=== PATIENT | female | born 1995 | race Hispanic/Latino ===

== ENCOUNTER 2017-10-18 01:09 | Emergency (ER) | payer SELFPAY ==
[2017-10-18 02:30] LABS: APPEARANCE,URINE TURBID (CLEAR); BILIRUBIN,URINE Negative (NEGATIVE); COLOR,URINE RED (YELLOW); GLUCOSE, URINE (UA) Negative (NEGATIVE); KETONES,URINE Negative (NEGATIVE); LEUKOCYTE ESTERASE ,URINE Negative (NEGATIVE); NITRATE,URINE Negative (NEGATIVE); OCCULT BLOOD,URINE Large (NEGATIVE); PROTEIN,URINE POS 2+ (NEGATIVE)
[2017-10-18 02:31] LABS: BACTERIA,URINE None Seen /HPF (None Seen); RBC,URINE TNTC /HPF (0-1); SQUAMOUS EPITHELIAL CELL,UR Rare /HPF (0-2)
[2017-10-18 02:32] LABS: HCG,QUAL RESULT NEGATIVE (NEGATIVE)
[2017-10-18 02:38] LABS: AMPHET/METH SCREEN,URINE NEGATIVE (NEGATIVE); BARBITURATE SCREEN, URINE NEGATIVE (NEGATIVE); BENZODIAZEPINES SCREEN,URINE NEGATIVE (NEGATIVE); CANNABINOID SCREEN,URINE POSITIVE (NEGATIVE); COCAINE SCREEN,URINE NEGATIVE (NEGATIVE); OPIATE SCREEN,URINE NEGATIVE (NEGATIVE); PHENCYCLIDINE SCREEN,URINE NEGATIVE (NEGATIVE)
== END 2017-10-18 02:57 | disposition home or self-care (01) ==
LOC: EDH 01:09
DX: N93.8 Other specified abnormal uterine and vaginal bleeding (principal); G43.909 Migraine, unspecified, not intractable, without status migrainosus
CPT/HCPCS: 80305; 81001; 81025

== ENCOUNTER 2018-05-01 16:54 | Emergency (ER) | payer SELFPAY ==
[2018-05-01 17:24] LABS: APPEARANCE,URINE Cloudy (CLEAR); BILIRUBIN,URINE Negative (NEGATIVE); COLOR,URINE Yellow (YELLOW); GLUCOSE, URINE (UA) Negative (NEGATIVE); KETONES,URINE Negative (NEGATIVE); LEUKOCYTE ESTERASE ,URINE Negative (NEGATIVE); NITRATE,URINE Negative (NEGATIVE); OCCULT BLOOD,URINE Negative (NEGATIVE); PH,URINE 7.5 (5.0-8.0); PROTEIN,URINE Negative (NEGATIVE); UROBILINOGEN,URINE 0.2 mg/dL (0.2-1.0)
[2018-05-01 17:25] LABS: HCG,QUAL RESULT NEGATIVE (NEGATIVE)
[2018-05-01 17:43] LABS: BACTERIA,URINE Few /HPF (None Seen); RBC,URINE None Seen /HPF (0-1); SQUAMOUS EPITHELIAL CELL,UR 30-50 /HPF (0-2); WBC,URINE None Seen /HPF (0-1)
[2018-05-01] MEDS ORDERED: LIDOCAINE HCL 2% VISCOUS 15 ML UDCUP ONE (17:54)
[2018-05-01] MEDS ORDERED: MAG HYDROX/AL HYDROX/SIMETH ES 30 ML SUSP UDCUP ONE (17:54)
[2018-05-01 18:22] LABS: BASOPHILS % (AUTO) 0.3 % (0.0-5.0); EOSINOPHILS % (AUTO) 0.6 % (0.0-8.0); HEMATOCRIT 41.4 % (36-48); LYMPHOCYTES % (AUTO) 28.7 % (21.0-51.0); MEAN CORPUSCULAR HEMOGLOBIN 29.8 pg (27.0-33.0); MEAN CORPUSCULAR HGB CONC 34.4 g/dL (32.0-36.0); MEAN CORPUSCULAR VOLUME 86.8 fL (79-99); MONOCYTES % (AUTO) 10.3 % (3.0-13.0); NEUTROPHILS % (AUTO) 60.1 % (40.0-77.0); PLATELET COUNT (AUTO) 237 K/uL (130-400); RED BLOOD CELL COUNT(AUTO) 4.77 MIL/uL (4.00-5.50); RED CELL DISTRIBUTION WIDTH 13.6 % (11.0-15.5); WHITE BLOOD COUNT (AUTO) 9.8 K/uL (4.8-10.8)
[2018-05-01 18:25] LABS: CREATININE 0.8 mg/dL (0.5-1.5); POTASSIUM 3.9 mmol/L (3.5-5.1)
[2018-05-01 18:31] LABS: ALBUMIN 3.9 g/dL (3.5-5.0); BILIRUBIN,TOTAL 0.5 mg/dL (0.2-1.0); TOTAL PROTEIN, SERUM 8.2 g/dL (6.0-8.3)
== END 2018-05-01 18:45 | disposition home or self-care (01) ==
LOC: EDH 16:54
DX: G89.29 Other chronic pain (principal); R10.84 Generalized abdominal pain; R11.0 Nausea; G43.909 Migraine, unspecified, not intractable, without status migrainosus; Z90.49 Acquired absence of other specified parts of digestive tract
CPT/HCPCS: 36415; 80053; 81001; 81025; 83690; 85025

== ENCOUNTER 2023-03-31 08:55 | Emergency (ER) | payer BC, OTHER ==
[~2023-03-31] VITALS: Ht 154.9 cm; Wt 120.2 kg
[2023-03-31 09:41] LABS: BASOPHILS # (AUTO) 0.01 K/uL (0.00-0.20); BASOPHILS % (AUTO) 0.1 % (0.0-5.0); EOSINOPHILS # (AUTO) 0.06 K/uL (0.00-0.70); EOSINOPHILS % (AUTO) 0.8 % (0.0-8.0); HEMATOCRIT 39.4 % (36-48); IMMATURE GRANULOCYTE ABSOLUTE 0.02 K/uL (0-1); LYMPHOCYTES % (AUTO) 27.7 % (21.0-51.0); MEAN CORPUSCULAR HEMOGLOBIN 29.4 pg (27.0-33.0); MEAN CORPUSCULAR HGB CONC 33.8 g/dL (32.0-36.0); MONOCYTES # (AUTO) 0.6 K/uL (0.1-1.0); MONOCYTES % (AUTO) 7.7 % (3.0-13.0); NEUTROPHILS # (AUTO) 4.5 K/uL (1.8-7.7); NEUTROPHILS % (AUTO) 63.4 % (40.0-77.0); PLATELET COUNT (AUTO) 228 K/uL (130-400); RED BLOOD CELL COUNT(AUTO) 4.53 MIL/uL (4.00-5.50); RED CELL DISTRIBUTION WIDTH 12.7 % (11.0-15.5); WHITE BLOOD COUNT (AUTO) 7.1 K/uL (4.8-10.8)
[2023-03-31 09:50] LABS: CREATININE 0.9 mg/dL (0.5-1.5); POTASSIUM 4.2 mmol/L (3.5-5.1)
[2023-03-31 10:59] LABS: APPEARANCE,URINE TURBID (CLEAR); BILIRUBIN,URINE MODERATE mg/dL (NEGATIVE); COLOR,URINE BROWN (YELLOW); GLUCOSE, URINE (UA) NEGATIVE (NEGATIVE); KETONES,URINE NEGATIVE (NEGATIVE); LEUKOCYTE ESTERASE ,URINE TRACE Leu/uL (NEGATIVE); NITRATE,URINE POSITIVE (NEGATIVE); OCCULT BLOOD,URINE LARGE (NEGATIVE); PH,URINE 6.5 (5.0-8.0); PROTEIN,URINE 100 mg/dL (NEGATIVE)
[2023-03-31 11:05] LABS: HCG,QUALITATIVE URINE NEGATIVE (NEGATIVE)
[2023-03-31 11:06] LABS: ADD UA MICROSCOPIC YES
[2023-03-31] MEDS ORDERED: NITR100C PO (11:21)
[2023-03-31] MEDS ORDERED: NITROFURANTOIN MONOHYD/M-CRYST 100 MG CAPSULE PO ONE (11:30)
[2023-03-31 11:56] LABS: BACTERIA,URINE Moderate /HPF (None Seen); RBC,URINE TNTC /HPF (0-1); SQUAMOUS EPITHELIAL CELL,UR Rare /HPF (0-2)
[2023-03-31 12:29] VITALS: BP 133/65; PULSE 84; RESP 18; O2SAT 98
== END 2023-03-31 12:38 | disposition home or self-care (01) ==
LOC: EDH 08:55
DX: N92.1 Excessive and frequent menstruation with irregular cycle (principal); N39.0 Urinary tract infection, site not specified; Z90.49 Acquired absence of other specified parts of digestive tract
CPT/HCPCS: 36415; 80048; 81001; 81025; 85025; 86850; 86900; 86901; 87088

== ENCOUNTER 2024-01-07 16:28 | Emergency (ER) | payer BC, OTHER ==
[~2024-01-07] VITALS: Ht 154.9 cm; Wt 122.5 kg
[~2024-01-07 16:28] MED LIST: NITR100C PO
[2024-01-07 17:20] LABS: RAPID GROUP A STREP negative (NEGATIVE)
[2024-01-07 17:21] LABS: SARS-CoV-2, RNA, NAAT NEGATIVE SARS CoV-2 (NEGATIVE)
[2024-01-07 17:30] LABS: INFLUENZA TYPE A Negative For Type A (NEGATIVE); INFLUENZA TYPE B Negative For Type B (NEGATIVE)
[2024-01-07] MEDS ORDERED: ONDA-243 PO (18:40)
[2024-01-07 18:48] VITALS: BP 137/71; PULSE 74; RESP 18; TEMP 98.4; O2SAT 98
== END 2024-01-07 18:50 | disposition home or self-care (01) ==
LOC: EDH 16:28
DX: B34.9 Viral infection, unspecified (principal); Z20.822 Contact with and (suspected) exposure to COVID-19; Z79.2 Long term (current) use of antibiotics; Z87.42 Personal history of other diseases of the female genital tract; Z90.49 Acquired absence of other specified parts of digestive tract
CPT/HCPCS: 87635; 87804; 87880

== ENCOUNTER 2024-03-16 03:08 | Emergency (ER) | payer OTHER ==
[~2024-03-16] VITALS: Ht 154.9 cm; Wt 130.6 kg
[~2024-03-16 03:08] MED LIST changes: +ONDA-243 PO
[2024-03-16] MEDS: acetaMINOPHEN 500 MG TABLET PO ONE (04:00)
[2024-03-16] MEDS: dexaMETHasone SOD PHOSPHATE 4 MG/ML 1ML VIAL IM ONE (04:34)
[2024-03-16] MEDS: cefTRIAXone 1G VIAL IM ONE (04:34)
[2024-03-16] MEDS: ketOROlac 30MG VIAL (30MG/ML) IM ONE (04:34)
[2024-03-16] MEDS: NEOMYCIN/POLYMYXIN/HC OTIC SUSP 10ML BOTTLE AD SCH (04:37)
--- NOTE | 2024-03-16 04:38 | ERN ---
ED Note History of Present Illness Stated Complaint: C/O LEFT EAR PAIN Chief Complaint: Earache Time Seen by MD: 03:22 Dictation: This is a 29-year-old morbidly obese female with a BMI of 54.4 presented to the emergency room complaining of left earache. She stated that this started about a day or 2 ago and she has been taking Tylenol and ear drops without any improvement. Last night she attempted to sleep but woke up at 1:00 a.m. with a excruciating left ear pain and she also noticed that the left face maybe swelling Temperature 99 pulse 90 respirations 18 blood pressure 126 over 76 with a pulse oximetry of 98% on room air No pain in the teeth gums she does not report any ear drainage but feels like her left ear is going to pop History of polycystic ovarian disease Allergies: Coded Allergies: No Known Drug Allergies (Verified Allergy, 09/12/12) Home Meds Active Scripts Ondansetron (Ondansetron Odt) 4 Mg Tab.rapdis, 4 MG PO Q6HPRN PRN for nausea for 3 Days, #18 TAB 0 Refills Prov:JACLYN PUGH [employer] 01/07/24 Nitrofurantoin Macrocrystal (Nitrofurantoin) 100 Mg Capsule, 100 MG PO BID for 7 Days, #13 CAP 0 Refills Prov:HERNANDEZ KWAN [employer]ING [employer] 03/31/23 Past Medical History Past Medical History: No Pertinent History Additional Past Medical Hx: POLYCYSTIC OVARIAN SYNDROME Surgical History: None Social History: Negative, Lives with family RN Note Reviewed/Agreed w/PFSH: Yes Review of System Dictation Constitutional: Negative for fever,chills, and weight loss Eyes: Negative for injury, pain,redness, and discharge ENT positive for severe left ear,pain or swelling Cardiovascular: Negative for chest pain, palpitations, and edema Respiratory: Negative for shortness of breath, cough, and wheezing, Abdomen/GI: Negative for abdominal pain, nausea, vomiting, diarrhea, and constipation Back: Negative for injury and pain : Negative for injury, bleeding and discharge MS/Extremity: Negative for injury and deformity Skin: Negative for rash, and discoloration Neuro: Negative for headache, weakness, numbness, tingling, and seizure Psych: Negative for suicide ideation, homicidal ideation, and hallucinations Initial Vital Sign VS Vital Signs Date Time Temp Pulse Resp B/P (MAP) Pulse Ox O2 Delivery O2 Flow Rate FiO2 03/16/24 03:09 99.0 90 18 126/76 98 Room Air Physical Exam Dictation General: awake, alert, NAD morbidly obese cushingoid appearing Head/Face: Normocephalic, atraumatic Eyes: PERRL, EOMI, vision at baseline ENT: oral cavity clear, TMs clear, no signs of infection left ear-external auditory canal shows small amount of yellowish drainage in the external auditory canal is very erythematous swollen and I am unable to even touch the ear and placed the otoscope due to severe pain I am unable to visualize the TM. Left molars a few teeth with dental caries Neck: Trachea midline, supple, no nuchal rigidity Cardiovascular: RRR, normal S1/S2, No MRGs, no JVD Respiratory: CTAB, no respiratory distress, No rales or wheezes Abdomen: Soft, non-tender, non-distended, normal bowel sounds, no guarding or rebound. Skin: Warm, dry, normal turgor, no rash MS/Extremity: Pulses equal, no cyanosis, neurovascular intact, FROM Neuro: COAx4, GCS 15, strength 5/5, CN 2-12 intact, normal cerebellar exam, normal gait, Psych: Normal behavior, mood, and affect normal Extremities-trace edema without any palpable cords, Homans sign is negative ED Course ED Course Orders Procedure Category Date Status Time Acetaminophen 500mg PHA 03/16/24 Complete Tab (Tylenol 500mg T 04:00 Ketorolac PHA 03/16/24 In Process Tromethamine 30mg/Ml 04:30 Ceftriaxone 1g Vial PHA 03/16/24 In Process (Rocephine 1g Inj) 04:30 Dexamethasone 4mg/Ml PHA 03/16/24 In Process 1ml Vial (Dexametha 04:30 Current Medications Medications (Trade) Dose Ordered Sig/Ashwin Route PRN Reason Start Time Stop Time Status Last Admin Dose Admin Acetaminophen (TYLenol 500MG TAB) 1,000 mg ONCE ONCE PO 03/16/24 04:00 03/16/24 04:01 DC 03/16/24 04:00 Ceftriaxone Sodium (ROCEphine 1G INJ) 1 gm ONCE ONCE IM 03/16/24 04:30 03/16/24 04:31 Dexamethasone Sodium Phosphate (dexaMETHasone 4MG/ML 1ML VIAL) 4 mg ONCE ONCE IM 03/16/24 04:30 03/16/24 04:31 Ketorolac Tromethamine (toRADol) 30 mg ONCE ONCE IM 03/16/24 04:30 03/16/24 04:31 Vital Signs Date Time Temp Pulse Resp B/P (MAP) Pulse Ox O2 Delivery O2 Flow Rate FiO2 03/16/24 03:09 99.0 90 18 126/76 98 Room Air We will administer medications according to the patient's complaint. Once the results are available, will review and personally interpreted the labs to rule out any acute life-threatening emergency the trach require immediate intervention and treatment. I will then re-evaluate the patient after treatment and diagnostic exams have return to determine whether the patient requires any further testing, can safely be discharged home or need further admission to hospital for additional treatment and evaluation. Outpatient antibiotic therapy and OTC ibuprofen/Tylenol PRN if symptoms do not improve or worsen return to the emergency room for additional advanced imaging. Medical Decision Making MDM MDM: Differential diagnosis: Otitis externa, otitis media Rationale: Tests considered and ordered secondary to shared decision making include: Previous outside records reviewed: Old ER visits. Risk of complication and/or morbidity or mortality of patient management: None Medications-Per medication reconciliation Need for hospitalization: Patient does not meet criteria for hospitalization. Need for emergency major/minor surgery: No There are no social concerns with this patient. Prescription drug management Prescriptions will include symptomatic care Patient's prior external medical records from other ER visits were reviewed by me as indicated. Prior testing and results from previous visits were reviewed. Prior tests were taken into account with medical decision making and resource utilization, independent historian/historians were used to obtain complete medical history. I independently interpreted the test that were performed, results were reviewed by me and considered findings on radiology if ordered. Medical management and examination interpretation discussions were had by me with other qualified healthcare professionals as indicated for the patient's care. DX & DISP Disposition: Discharge Departure Impression: Primary Impression: Otitis media Additional Impressions: Earache on left, Otitis externa Condition: Stable Scripts Ketorolac Tromethamine (Toradol) 10 Mg Tab 10 MG PO QID for pain for 5 Days, #20 TAB 0 Refills Prov: LAZARUS GUSMAN MD 03/16/24 Amoxicillin/Potassium Clav (Amox Tr-K Clv 875-125 mg Tab) 875 Mg-125 Mg Tablet 1 EACH PO BID for 10 Days, #20 TAB 0 Refills Prov: LAZARUS GUSAMN MD 03/16/24 Additional Instructions: Patient and the caregiver have been informed of all the diagnostic tests and the imaging conducted during the today's visit to the emergency room and has verbalized understanding of the results I have personally reviewed and interpreted all diagnostic exams performed here in the ER today as well as the vital signs documented by the nursing staff. The patient is now being discharged to home and should follow up with the primary care physician or the specialist as directed by the ER staff. Follow-up with primary care provider in 1 to 2 days. Take medications as directed here in the emergency room. Okay to continue home medications unless otherwise discussed during your visit in the emergency room today. Return to your nearest emergency room if symptoms worsen or if there is no improvement. Call 911 if you need immediate assistance. Take Tylenol or Motrin over-the- counter as needed and if no contraindications are present. Increase oral hydration. A wound culture or urine culture was ordered here in the emergency room department please follow-up with primary care provider and advise them to get repeat ports from our facility. If you had any Mio wrap/splints that were applied here, please do not remove them until you see your primary care or specialty. Referrals: SELF,REFERRAL (PCP) LAZARUS GUSMAN MD Mar 16, 2024 04:38
[2024-03-16] MEDS ORDERED: KETO10 PO (04:41)
[2024-03-16] MEDS ORDERED: AMOX1TAB16 PO (04:41)
[2024-03-16 05:08] VITALS: BP 124/74; PULSE 79; RESP 18; TEMP 98.4; O2SAT 98
== END 2024-03-16 05:09 | disposition home or self-care (01) ==
LOC: EDH 03:08
DX: H66.92 Otitis media, unspecified, left ear (principal); H60.92 Unspecified otitis externa, left ear; E28.2 Polycystic ovarian syndrome; Z79.899 Other long term (current) drug therapy
CPT/HCPCS: 99284; 96372 ×3; J1100; J0696; J1885

== ENCOUNTER 2024-03-18 14:23 | Emergency (ER) | payer OTHER ==
[~2024-03-18] VITALS: Ht 154.9 cm; Wt 129.7 kg
[~2024-03-18 14:23] MED LIST changes: +AMOX1TAB16 PO; +KETO10 PO
--- NOTE | 2024-03-18 14:30 | ERN ---
ED Note History of Present Illness Stated Complaint: LEFT EAR PAIN Chief Complaint: Earache Time Seen by MD: 14:27 Dictation: PATIENT IS A 29-YEAR-OLD FEMALE COMING IN TODAY WITH SOME COMPLAINTS OF BILATERAL EAR PAIN GREATER ON THE LEFT WITH SOME DRAINAGE SHE HAS HAD FOR 3-4 DAYS. NO FEVER NO CHILLS NO NAUSEA VOMITING. WAS SEEN AT [facility] TWO DAYS AGO AND WAS GIVEN ROCEPHIN AUGMENTIN AND TORADOL AND TOLD TO SEE HER DOCTOR FOR ENT REFERRAL. SHE STATES SHE DID NOT GO SEE HER DOCTOR BECAUSE SHE WAS GIVEN THE MEDICATIONS TIME TO SEE IF THEY WOULD WORK. SHE IS NOW BACK HERE IN [place] Allergies: Coded Allergies: No Known Drug Allergies (Verified Allergy, 09/12/12) Home Meds Active Scripts Ciprofloxacin HCl/Hc (Cipro Hc Otic Susp) 0.2 %-1 % Otsus, 3 DROP OTIC BID for 7 Days, #10 ML 0 Refills THREE DROPS EACH EAR TWICE A DAY FOR SEVEN DAYS WITH COTTON. Prov:ROSA ELENA MORENO NP 03/18/24 Acetaminophen with Codeine (Acetaminophen-Cod #3 Tablet) 300 Mg-30 Mg Tablet, 1 TAB PO Q6H PRN for MODERATE TO SEVERE PAIN, #15 TAB 0 Refills Prov:ROSA ELENA MORENO NP 03/18/24 Ketorolac Tromethamine (Toradol) 10 Mg Tab, 10 MG PO QID for pain for 5 Days, #20 TAB 0 Refills Prov:LAZARUS GUSMAN MD 03/16/24 Amoxicillin/Potassium Clav (Amox Tr-K Clv 875-125 mg Tab) 875 Mg-125 Mg Tablet, 1 EACH PO BID for 10 Days, #20 TAB 0 Refills Prov:LAZARUS GUSMAN MD 03/16/24 Ondansetron (Ondansetron Odt) 4 Mg Tab.rapdis, 4 MG PO Q6HPRN PRN for nausea for 3 Days, #18 TAB 0 Refills Prov:JACLYN PUGH NP 01/07/24 Nitrofurantoin Macrocrystal (Nitrofurantoin) 100 Mg Capsule, 100 MG PO BID for 7 Days, #13 CAP 0 Refills Prov:HERNANDEZ KWAN NP 03/31/23 Past Medical History Past Medical History: No Pertinent History Additional Past Medical Hx: POLYCYSTIC OVARIAN SYNDROME Surgical History: None Social History: Negative, Lives with family History: Not Applicable LMP: September 15, 2023 RN Note Reviewed/Agreed w/PFSH: Yes Review of System Dictation CONSTITUTIONAL: NEGATIVE EXCEPT FOR HPI HEAD/FACE: NEGATIVE EXCEPT FOR HPI EENT: NEGATIVE EXCEPT FOR HPI BILATERAL EAR PAIN, INCREASED ON THE LEFT WITH DRAINAGE RESPIRATORY: NEGATIVE EXCEPT FOR HPI GASTROINTESTINAL/ABDOMINAL: NEGATIVE EXCEPT FOR HPI GENITOURINARY: NEGATIVE EXCEPT FOR HPI MUSCULOSKELETAL: NEGATIVE EXCEPT FOR HPI INTEGUMENTARY: NEGATIVE EXCEPT FOR HPI NEUROLOGICAL/PSYCH: NEGATIVE EXCEPT FOR HPI HEMATOLOGIC/LYMPHATIC: NEGATIVE EXCEPT FOR HPI ALL SYSTEMS NEGATIVE, EXCEPT NOTED ABOVE. 13 POINT REVIEW OF SYSTEMS ASSESSED AND ALL NEGATIVE EXCEPT FOR ABOVE. Initial Vital Sign VS Vital Signs Date Time Temp Pulse Resp B/P (MAP) Pulse Ox O2 Delivery O2 Flow Rate FiO2 03/18/24 14:25 98.1 89 18 154/103 98 Room Air 0 03/18/24 14:42 21 Physical Exam Dictation VITAL SIGNS REVIEWED GENERAL APPEARANCE: ALERT, ORIENTED X 3, N MODERATE ACUTE DISTRESS, WELL DEVELOPED, NOURISHED. HEAD AND FACE: NON-TRAUMATIC. EYES: PERRL, PINK CONJUNCTIVAS, EYELID NO TRAUMA, ANTERIOR CHAMBER WITH ARCUS SENILIS. EARS: PINNAS INTACT AND NO SIGNS OF TRAUMA O RIGHT OTIC CANAL WITH ERYTHEMA TENDERNESS SWELLING. UNABLE TO VISUALIZE LEFT TM HOWEVER OTIC DISCHARGE GREEN NO MASTOID TENDERNESS BILATERALLY NOSE: NO DISCHARGE, NO BLEEDING. OROPHARYNX: MOUTH NORMAL, TONGUE PINK, PHARYNX CLEAR,NO ERYTHEMA, TONSILS NO EXUDATES, NO ABSCESSES NOTED, MUCOUS MEMBRANE MOIST NECK: SUPPLE, NON-TENDER, NO THYROMEGALY, NO MASSES, NO JVD, NO BRUITS BREAST:DEFERRED CHEST:NO TENDERNESS, NO CREPITUS, NO PARADOXICAL MOVEMENT, NO RETRACTIONS LUNGS:CLEAR, WELL-VENTILATED, SYMMETRIC, NO RALES, NO WHEEZING, NO RHONCHI, NO STRIDOR, GOOD BREATH SOUNDS BILATERALLY HEART: REGULAR RATE, REGULAR RHYTHM, NO MURMUR, NO GALLOPS VASCULAR: NO PERIPHERAL EDEMA, ABDOMEN: SOFT, POSITIVE BOWEL SOUNDS, NONDISTENDED, NO GUARDING, NONTENDER, NO REBOUND, NO MASSES NO HEPATOMEGALY, NO SPLENOMEGALY, NO GARDNER'S SIGN, NO HERNIAS. RECTAL: DEFERRED GENITAL: DEFERRED NEUROLOGICAL: NORMAL SPEECH, MOTOR FUNCTION INTACT, SENSORY FUNCTION INTACT MUSCULOSKELETAL: NECK NONTENDER, FULL RANGE OF MOTION, BACK NONTENDER, FULL RANGE OF MOTION, EXTREMITIES: NONTENDER, FULL RANGE OF MOTION SKIN: COLOR PINK, DRY, NO TURGOR, NO RASH, NO LACERATIONS, NO ABRASIONS, NO CONTUSIONS. LYMPHATIC: DEFERRED Results (Laboratory/Radiology) Labs Reviewed?: Yes ED Course ED Course Orders Procedure Category Date Status Time Acetaminophen With PHA 03/18/24 Complete Codeine (Tylenol-Code 14:30 Ketorolac 60mg/2ml PHA 03/18/24 Complete (Toradol 60mg/2ml) 14:30 Ceftriaxone 1g Vial PHA 03/18/24 Complete (Rocephine 1g Inj) 14:30 Current Medications Medications (Trade) Dose Ordered Sig/Ashwin Route PRN Reason Start Time Stop Time Status Last Admin Dose Admin Acetaminophen/ Codeine Phosphate (TYLenol-coDEINE TAB) 2 tab ONCE ONCE PO 03/18/24 14:30 03/18/24 14:31 DC 03/18/24 14:37 Ceftriaxone Sodium (ROCEphine 1G INJ) 1 gm ONCE ONCE IM 03/18/24 14:30 03/18/24 14:31 DC 03/18/24 14:36 Ketorolac Tromethamine (toRADol 60MG/ 2ML) 60 mg ONCE ONCE IM 03/18/24 14:30 03/18/24 14:31 DC 03/18/24 14:36 Vital Signs Date Time Temp Pulse Resp B/P (MAP) Pulse Ox O2 Delivery O2 Flow Rate FiO2 03/18/24 15:36 98.4 84 16 147/81 98 Room Air* 0 03/18/24 14:42 98.8 88 14 165/92 98 Room Air* 0 03/18/24 14:25 98.1 89 18 154/103 98 Room Air 0 FIFTEEN 20 PATIENT DISCHARGED HOME WITH BILATERAL OTITIS EXTERNA SHE REMAINS ON AUGMENTIN AND KETOROLAC, WE WILL BE GIVEN CIPRODEX DROPS AND TOLD TO SEE HER DOCTOR WEDNESDAY WITHOUT FAIL FOR ENT REFERRAL. Medical Decision Making MDM MEDICAL DISCHARGE MAKING BASED ON EMPIRIC TREATMENT FOR OTITIS EXTERNA AND OTITIS MEDIA WITH EFFUSION. PATIENT ALREADY ON AUGMENTIN 875 AND KETOROLAC. SHE WILL BE PLACED ON CIPRODEX OTIC DROPS INSTRUCTED TO USE COTTON AND SEE HER DOCTOR WEDNESDAY WITHOUT FAIL FOR ENT REFERRAL DX & DISP Disposition: Discharge Departure Impression: Primary Impression: Acute contact otitis externa, right Additional Impression: Left acute serous otitis media Condition: Stable Scripts Ciprofloxacin HCl/Hc (Cipro Hc Otic Susp) 0.2 %-1 % Otsus 3 DROP OTIC BID for 7 Days, #10 ML 0 Refills THREE DROPS EACH EAR TWICE A DAY FOR SEVEN DAYS WITH COTTON. Prov: ROSA ELENA MORENO NP 03/18/24 Acetaminophen with Codeine (Acetaminophen-Cod #3 Tablet) 300 Mg-30 Mg Tablet 1 TAB PO Q6H PRN for MODERATE TO SEVERE PAIN, #15 TAB 0 Refills Prov: ROSA ELENA MORENO NP 03/18/24 Additional Instructions: Follow-up with primary care provider in 1 to 2 days. Take medications as directed here in the emergency room. Okay to continue home medications unless otherwise discussed during your visit in the emergency room today. Return to your nearest emergency room if symptoms worsen or if there is no improvement. Call 911 if you need immediate assistance. Take Tylenol or Motrin [id number] as needed and if no contraindications are present. Increase oral hydration. A wound culture or urine culture was ordered here in the emergency room department please follow-up with primary care provider and advise them to get repeat ports from our facility. If you had any Mio wrap/splints that were applied here, please do not remove them until you see your primary care or specialty. Continue Augmentin as directed from your last visit to the emergency room. Start Cipro otic drops as directed with cotton for the next seven days. Take Tylenol No. 3 with codeine for severe pain. See your primary care doctor on Wednesday without fail for referral to ENT specialist Referrals: NONE (PCP) Time of Disposition: 15:24 I have reviewed the case, and I agree with, Diagnosis and Plan ATTESTATION BY PHYSICIAN I PERFORMED THE SUBSTANTIVE PORTION OF THE VISIT. I HAVE REVIEWED AND PERSONALLY MADE AND APPROVED THE MANAGEMENT PLAN THAT IS DOCUMENTED IN THE NOTE BY MYSELF FOR THE A PP. I ACKNOWLEDGED FOR RESPONSIBILITY FOR THE PATIENT'S MANAGEMENT PLAN. ROSA ELENA MORENO NP Mar 18, 2024 14:30 CALIXTO LOCK MD Mar 18, 2024 18:17
[2024-03-18] MEDS: ketOROlac 60 MG VIAL (30MG/ML) IM ONE (14:36)
[2024-03-18] MEDS: cefTRIAXone 1G VIAL IM ONE (14:36)
[2024-03-18] MEDS: acetaMINOPHEN WITH coDEINE 1 TAB TAB PO ONE (14:37)
[2024-03-18] MEDS ORDERED: ACET-2079 PO (15:26)
[2024-03-18] MEDS ORDERED: CIPOTIC OTIC (15:26)
[2024-03-18 15:36] VITALS: BP 147/81; PULSE 84; RESP 16; TEMP 98.4; O2SAT 98
== END 2024-03-18 15:42 | disposition home or self-care (01) ==
LOC: EDH 14:23
DX: H60.91 Unspecified otitis externa, right ear (principal); H65.02 Acute serous otitis media, left ear; Z79.899 Other long term (current) drug therapy
CPT/HCPCS: 99284; 96372 ×2; J0696; J1885

== ENCOUNTER 2024-05-25 17:05 | Emergency (ER) | payer BC, OTHER ==
[~2024-05-25] VITALS: Ht 154.9 cm; Wt 126.1 kg
[~2024-05-25 17:05] MED LIST changes: +ACET-2079 PO; +CIPOTIC OTIC
--- NOTE | 2024-05-25 17:32 | ERN ---
ED Note History of Present Illness Stated Complaint: HIGH BLOOD PRESSURE,MIGRAINE Chief Complaint: Hypertension Time Seen by MD: 17:06 Time Seen by Midlevel: 17:06 Dictation: The patient is a 29-year-old female with history of polycystic ovarian syndrome who presents to the emergency department with complains of right side headache onset yesterday associated with some nausea. Reports today she took her blood pressure and it was 150/89 and started to have chest pain and palpitations. Denies any visual disturbances, fevers, Allergies: Coded Allergies: No Known Drug Allergies (Verified Allergy, Unknown, 05/25/24) morphine (Unverified Allergy, Unknown, 05/25/24) Home Meds Active Scripts Ciprofloxacin HCl/Hc (Cipro Hc Otic Susp) 0.2 %-1 % Otsus, 3 DROP OTIC BID for 7 Days, #10 ML 0 Refills THREE DROPS EACH EAR TWICE A DAY FOR SEVEN DAYS WITH COTTON. Prov:ROSA ELENA MORENO NP 03/18/24 Acetaminophen with Codeine (Acetaminophen-Cod #3 Tablet) 300 Mg-30 Mg Tablet, 1 TAB PO Q6H PRN for MODERATE TO SEVERE PAIN, #15 TAB 0 Refills Prov:ROSA ELENA MORENO NP 03/18/24 Ketorolac Tromethamine (Toradol) 10 Mg Tab, 10 MG PO QID for pain for 5 Days, #20 TAB 0 Refills Prov:LAZARUS GUSMAN MD 03/16/24 Amoxicillin/Potassium Clav (Amox Tr-K Clv 875-125 mg Tab) 875 Mg-125 Mg Tablet, 1 EACH PO BID for 10 Days, #20 TAB 0 Refills Prov:LAZARUS GUSMAN MD 03/16/24 Ondansetron (Ondansetron Odt) 4 Mg Tab.rapdis, 4 MG PO Q6HPRN PRN for nausea for 3 Days, #18 TAB 0 Refills Prov:JACLYN PUGH NP 01/07/24 Nitrofurantoin Macrocrystal (Nitrofurantoin) 100 Mg Capsule, 100 MG PO BID for 7 Days, #13 CAP 0 Refills Prov:HERNANDEZ KWAN NP 03/31/23 Past Medical History Past Medical History: No Pertinent History Additional Past Medical Hx: POLYCYSTIC OVARIAN SYNDROME Surgical History: None Social History: Negative, Lives with family History: Not Applicable RN Note Reviewed/Agreed w/PFSH: Yes Review of System Dictation Constitutional: Negative for fever,chills, and weight loss Eyes: Negative for injury, pain,redness, and discharge ENT: Negative for injury,pain or swelling Cardiovascular: Negative for and edema positive for chest pain, palpitations Respiratory: Negative for shortness of breath, cough, and wheezing, Abdomen/GI: Negative for abdominal pain, nausea, vomiting, diarrhea, and constipation Back: Negative for injury and pain : Negative for injury, bleeding and discharge MS/Extremity: Negative for injury and deformity Skin: Negative for rash, and discoloration Neuro: Negative for , weakness, numbness, tingling, and seizure positive for headache Psych: Negative for suicide ideation, homicidal ideation, and hallucinations Initial Vital Sign VS Vital Signs Date Time Temp Pulse Resp B/P (MAP) Pulse Ox O2 Delivery O2 Flow Rate FiO2 05/25/24 17:06 97.5 73 18 127/75 98 05/25/24 17:40 Room Air* 0 21 Physical Exam Dictation Vital Signs reviewed General Appearance: Alert, oriented x 3, no acute distress, well developed, nourished. Head and Face: non-traumatic. Eyes: PERRL, pink conjunctivas, eyelid no trauma, anterior chamber with arcus senilis. Ears: Pinnas intact and no signs of trauma or erythema ear canals clear and no discharge TM no erythema Nose: No discharge, no bleeding. Oropharynx: Mouth normal, tongue pink. pharynx clear,no erythema, tonsils no exudates, no abscesses noted, mucous membrane moist Neck: Supple, non-tender, no thyromegaly, no masses, no JVD, no bruits Breast:Deferred Chest:No tenderness, no crepitus, no paradoxical movement, no retractions Lungs:Clear, well-ventilated, symmetric, no rales, no wheezing, no rhonchi, no stridor, good breath sounds bilaterally Heart: Regular rate, regular rhythm, no murmur, no gallops Vascular: no peripheral edema, Abdomen: Soft, positive bowel sounds, nondistended, no guarding, nontender, no rebound, no masses no hepatomegaly, no splenomegaly, no Carter's sign, no hernias. Rectal: Deferred Genital: Deferred Neurological: Normal speech, motor function intact, sensory function intact , no slurred speech, no facial drop Musculoskeletal: Neck nontender, full range of motion, back nontender, full range of motion, Extremities: nontender, full range of motion Skin: Color pink, dry, no turgor, no rash, no lacerations, no abrasions, no contusions. Lymphatic: Deferred Results (Laboratory/Radiology) Laboratory/Radiology Laboratory Tests Test 05/25/24 17:39 White Blood Count 8.9 K/uL (4.8-10.8) Red Blood Count 4.60 MIL/uL (4.00-5.50) Hemoglobin 13.3 g/dL (12.0-16.0) Hematocrit 38.9 % (36-48) Mean Corpuscular Volume 84.6 fL (79-99) Mean Corpuscular Hemoglobin 28.9 pg (27.0-33.0) Mean Corpuscular Hemoglobin Concent 34.2 g/dL (32.0-36.0) Red Cell Distribution Width 12.5 % (11.0-15.5) Platelet Count 229 K/uL (130-400) Mean Platelet Volume 11.2 fL (7.5-10.5) H Immature Granulocyte % (Auto) 0.1 % (0-1) Neutrophils (%) (Auto) 53.5 % (40.0-77.0) Lymphocytes (%) (Auto) 36.4 % (21.0-51.0) Monocytes (%) (Auto) 8.5 % (3.0-13.0) Eosinophils (%) (Auto) 1.2 % (0.0-8.0) Basophils (%) (Auto) 0.3 % (0.0-5.0) Neutrophils # (Auto) 4.8 K/uL (1.8-7.7) Lymphocytes # (Auto) 3.2 K/uL (1.0-4.8) Monocytes # (Auto) 0.8 K/uL (0.1-1.0) Eosinophils # (Auto) 0.11 K/uL (0.00-0.70) Basophils # (Auto) 0.03 K/uL (0.00-0.20) Absolute Immature Granulocyte (auto 0.01 K/uL (0-1) Nucleated Red Blood Cells 0.0 % (0.0-0.19) Sodium Level 136 mmol/L (136-145) Potassium Level 3.8 mmol/L (3.5-5.1) Chloride Level 102 mmol/L (101-111) Carbon Dioxide Level 28 mmol/L (21-32) Blood Urea Nitrogen 18 mg/dL (7-18) Creatinine 0.7 mg/dL (0.5-1.0) Glomerular Filtration Rate Calc 121 mL/min (>90) Random Glucose 88 mg/dL (70-105) Total Calcium 9.0 mg/dL (8.5-10.1) Troponin I High Sensitivity < 4 ng/L (4-50) L Serum Test, Qualitative NEGATIVE (NEGATIVE) REASON: cp ORDERING PHYSICIAN: BROOK ROB CRITICAL CARE PARAMEDIC PROCEDURE: CXR1VW - CHEST 1VW PORTABLE CHEST RADIOGRAPH INDICATION: cp COMPARISON: 03/02/2014 FINDINGS: Image is somewhat underexposed, but the radiologic examination is still believed to be of reasonable diagnostic quality. Heart size is normal. The pulmonary vascularity and [place] appear normal. No abnormal pulmonary parenchymal opacity or consolidation identified. No significant pleural effusion noted. No pneumothorax detected. IMPRESSION: No radiographic evidence for any acute cardiopulmonary process. Labs Reviewed?: Yes EKG: (+) rhythm (Sinus rhythm) EKG Comment: Date:05/25/2024 Time:1731 Ventricular rate:70 LA interval:150 QRS duration:101 QT/QTc:396 EKG interpretation: Sinus rhythm Reviewed by ED Attending no STEMI ED Course ED Course Orders Procedure Category Date Status Time Cbc With Differential LAB 05/25/24 Complete 17:24 Chest 1vw RAD 05/25/24 Resulted 17:24 12 Lead Ekg Tracing- EKG 05/25/24 Complete Technical 17:24 0.9%Nacl 1000ml (Ns PHA 05/25/24 Complete 1000ml) 17:30 Acetaminophen 500mg PHA 05/25/24 Complete Tab (Tylenol 500mg T 17:30 Ondansetron 4mg Inj PHA 05/25/24 Complete (Zofran 4mg Inj) 17:30 Troponin I High LAB 05/25/24 Complete Sensitivity 17:24 Basic Metabolic Panel LAB 05/25/24 Complete 17:24 Testing, LAB 05/25/24 Complete Serum Hcg 17:24 Metoclopramide 10 PHA 05/25/24 Complete Mg/2 Ml Vial (Reglan 1 17:30 Diphenhydramine Hcl PHA 05/25/24 Complete (Benadryl Inj) 17:30 Current Medications Medications (Trade) Dose Ordered Sig/Ashwin Route PRN Reason Start Time Stop Time Status Last Admin Dose Admin Acetaminophen (TYLenol 500MG TAB) 1,000 mg ONCE ONCE PO 05/25/24 17:30 05/25/24 17:31 DC 05/25/24 18:29 Diphenhydramine HCl (BENAdryl INJ) 25 mg ONCE ONCE IV 05/25/24 17:30 05/25/24 17:31 DC 05/25/24 18:29 Metoclopramide HCl (regLAN 10MG IV) 10 mg ONCE ONCE IVP 05/25/24 17:30 05/25/24 17:31 DC 05/25/24 18:29 Ondansetron HCl (zoFRAN 4MG INJ) 4 mg ONCE ONCE IVP 05/25/24 17:30 05/25/24 17:31 DC 05/25/24 18:29 Sodium Chloride 1,000 ml @ 0 mls/hr ONCE ONCE IV 05/25/24 17:30 05/25/24 17:31 DC 05/25/24 18:29 Vital Signs Date Time Temp Pulse Resp B/P (MAP) Pulse Ox O2 Delivery O2 Flow Rate FiO2 05/25/24 18:15 98.4 68 18 119/59 98 Room Air* 0 21 05/25/24 17:40 98.4 73 18 127/75 98 Room Air* 0 21 05/25/24 17:06 97.5 73 18 127/75 98 HEART Score Response (Comments) Value History: Low suspicion (0) 0 EKG: Normal 0 Age: < 45yrs (0) 0 Risk Factors: No known risk factors (0) 0 Initial Troponin: Normal limit (0) 0 Total 0 Medical Decision Making [facility] MDM: The patient is a 29-year-old female with history of polycystic ovarian syndrome who presents to the emergency department with complains of right side headache onset yesterday associated with some nausea. Reports today she took her blood pressure and it was 150/89 and started to have chest pain and palpitations. Denies any visual disturbances, fevers, CBC showed no leukocytosis, no anemia, chemistry showed no electrolyte imbalance, negative troponin, negative . Patient reports headache and chest pain feels better. Patient continues in no distress, neurologically intact. Differential diagnosis: Migraine headache, tension headache, electrolyte imbalance, dehydration, ACS, anxiety Need for hospitalization: Patient does not meet criteria for hospitalization. There are no social concerns with this patient. DX & DISP Disposition: Discharge Departure Impression: Primary Impression: Headache Additional Impression: Chest pain with low risk for cardiac etiology Condition: Stable Additional Instructions: FOLLOW-UP WITH PRIMARY CARE PROVIDER IN 1 TO 2 DAYS. TAKE MEDICATIONS DIRECTED HERE IN THE EMERGENCY ROOM. OKAY TO CONTINUE HOME MEDICATIONS UNLESS OTHERWISE DISCUSSED DURING YOUR VISIT IN THE EMERGENCY ROOM TODAY. RETURN TO YOUR NEAREST EMERGENCY ROOM IF SYMPTOMS WORSEN OR IF THERE IS NO IMPROVEMENT. C ALL 911 IF YOU NEED IMMEDIATE ASSISTANCE. TAKE TYLENOL OR MOTRIN [id number] NEEDED AND IF NO CONTRAINDICATIONS ARE PRESENT. INCREASE ORAL HYDRATION. A WOUND CULTURE OR URINE CULTURE WAS ORDERED HERE IN THE EMERGENCY ROOM DEPARTMENT PLEASE FOLLOW-UP WITH PRIMARY CARE PROVIDER AND ADVISE THEM TO GET REPEAT PORTS FROM OUR FACILITY. IF YOU HAD ANY NILDA WRAP/SPLINTS THAT WERE APPLIED HERE, PLEASE DO NOT REMOVE THEM UNTIL YOU SEE YOUR PRIMARY CARE OR SPECIALTY. Referrals: CHUNG ATKINS (PCP) Time of Disposition: 19:09 I have reviewed the case, and I agree with, Diagnosis and Plan BROOK ROB May 25, 2024 17:32 ELEANOR RICO DO May 25, 2024 20:05
--- NOTE | 2024-05-25 17:35 | EKG ---
[facility] Test Date: 2024-05-25 Test Time: 17:31:29 Pat Name: MARY ANN NG Department: [facility] Room: Gender: Female [employer]: [id number] : 1995 Requested By: BROOK ROB Order Number: [id number] Reading MD: Measurements Intervals [place] Rate: 70 P: 33 LA: 150 QRS: 63 QRSD: 101 T: 27 QT: 396 QTc: 428 Interpretive Statements Sinus rhythm Low voltage, precordial leads Please click the below link to view image of tracing.
[2024-05-25 18:22] LABS: BASOPHILS # (AUTO) 0.03 K/uL (0.00-0.20); BASOPHILS % (AUTO) 0.3 % (0.0-5.0); EOSINOPHILS # (AUTO) 0.11 K/uL (0.00-0.70); EOSINOPHILS % (AUTO) 1.2 % (0.0-8.0); HEMATOCRIT 38.9 % (36-48); IMMATURE GRANULOCYTE ABSOLUTE 0.01 K/uL (0-1); LYMPHOCYTES # (AUTO) 3.2 K/uL (1.0-4.8); LYMPHOCYTES % (AUTO) 36.4 % (21.0-51.0); MEAN CORPUSCULAR HEMOGLOBIN 28.9 pg (27.0-33.0); MEAN CORPUSCULAR HGB CONC 34.2 g/dL (32.0-36.0); MEAN CORPUSCULAR VOLUME 84.6 fL (79-99); MONOCYTES # (AUTO) 0.8 K/uL (0.1-1.0); MONOCYTES % (AUTO) 8.5 % (3.0-13.0); NEUTROPHILS # (AUTO) 4.8 K/uL (1.8-7.7); NEUTROPHILS % (AUTO) 53.5 % (40.0-77.0); PLATELET COUNT (AUTO) 229 K/uL (130-400); RED CELL DISTRIBUTION WIDTH 12.5 % (11.0-15.5); WHITE BLOOD COUNT (AUTO) 8.9 K/uL (4.8-10.8)
[2024-05-25] MEDS: 0.9%NACL 1000ML 1,000 ML IV ONE (18:29)
[2024-05-25] MEDS: ondanSETRON 4MG INJ IVP ONE (18:29)
[2024-05-25] MEDS: metoCLOPRAmide 10 MG/2 ML VIAL IVP ONE (18:29)
[2024-05-25] MEDS: acetaMINOPHEN 500 MG TABLET PO ONE (18:29)
[2024-05-25] MEDS: DiphenhydrAMINE HCL 50 MG/ML VIAL IV ONE (18:29)
[2024-05-25 18:31] LABS: CREATININE 0.7 mg/dL (0.5-1.0); POTASSIUM 3.8 mmol/L (3.5-5.1)
--- NOTE | 2024-05-25 19:04 | HMCIMG ---
PORTABLE CHEST RADIOGRAPH INDICATION: cp COMPARISON: 03/02/2014 FINDINGS: Image is somewhat underexposed, but the radiologic examination is still believed to be of reasonable diagnostic quality. Heart size is normal. The pulmonary vascularity and [place] appear normal. No abnormal pulmonary parenchymal opacity or consolidation identified. No significant pleural effusion noted. No pneumothorax detected. IMPRESSION: No radiographic evidence for any acute cardiopulmonary process.
[2024-05-25 20:10] VITALS: BP 122/62; PULSE 70; RESP 16; TEMP 98.2; O2SAT 99
== END 2024-05-25 20:16 | disposition home or self-care (01) ==
LOC: EDH 17:05
DX: R51.9 Headache, unspecified (principal); R07.89 Other chest pain; Z88.5 Allergy status to narcotic agent
CPT/HCPCS: 99284; 96374; 96375; 71045; 96361; 84484; 80048; 84703; 85025; 36415; 93005; J1200; J7030; J2405; J2765